=== PATIENT | male | born 1980 | race Two or more races ===

== ENCOUNTER → 2017-01-07 | Outpatient (CLI) | payer OTHER ==
--- NOTE | 2017-01-07 11:10 | REP ---
DUPLEX DOPPLER EVALUATION OF ABDOMINAL AORTA AND ILIAC VESSELS: Real-time ultrasound evaluation and duplex Doppler interrogation of the abdominal aorta and iliac arteries is performed. There are bilateral iliac stents. Abdominal aorta is normal in caliber, maximum AP diameter just below the diaphragms is 2.7 cm, at the level of the renal arteries 2.1 cm and just above the bifurcation 1.7 cm. Common iliac arteries measure 1 cm in diameter. Peak systolic velocity in the distal abdominal aorta is 101 cm/s. Peak systolic velocity in the proximal right common iliac artery is 200 cm/s and in the right external iliac artery 150 cm/s. Ratio of right common iliac artery to abdominal aorta velocity is 2.0. Peak systolic velocity in the left common iliac artery is 157 cm/s, at the origin of the left external iliac artery 176 cm/s. Peak systolic velocity distal to that diminishes to 129 cm/s and 85 cm/s. Ratio of left common iliac artery to aortic velocity is 1.74. IMPRESSION: No duplex Doppler sonographic evidence of iliac stenosis. No abdominal aortic aneurysm. Signed by Juve Stevenson MD 01/07/2017 04:56 P
== END ==
LOC: M RAD 08:37
PROVIDERS: ATTEND Surgery
DX: I73.9 Peripheral vascular disease, unspecified (principal); I74.5 Embolism and thrombosis of iliac artery

== ENCOUNTER → 2017-07-17 | Outpatient (CLI) | payer OTHER ==
--- NOTE | 2017-07-18 10:55 | REP ---
Clinical: Peripheral vascular disease with history of occlusion. Technique: Real time stevenson scale ultrasound examination with color Doppler evaluation of the aorta and bilateral iliac arteries. Comparison: 01/07/2017. Findings: Stevenson scale ultrasound examination of the aorta demonstrates normal caliber without evidence for aneurysm. The aorta measures 1.9 cm maximal diameter and without evidence for significant atheromatous plaquing. Color Doppler interrogation of the aorta and bilateral iliac arteries as detailed below demonstrates moderately increased velocities through the bilateral common iliac arteries and associated elevated iliac/aortic ratios as compared with prior examination dated 01/07/2017 suggesting narrowing through the bilateral stented iliac arteries. PSV Distal aorta 99.7 cm/sec Right common iliac artery 274.9 cm/sec Left common iliac artery 257.9 cm/sec Right MICHAEL/AO 2.8 Left MICHAEL/AO 2.6 Impression: Increasing velocities through the bilateral common iliac arteries consistent with gradual stenosis. Signed by Mike Viramontes MD 07/18/2017 10:46 A
== END ==
LOC: M RAD 08:52
PROVIDERS: ATTEND Surgery
DX: I73.9 Peripheral vascular disease, unspecified (principal); I74.5 Embolism and thrombosis of iliac artery